=== PATIENT | male | born 1965 | race Caucasian/White ===

== ENCOUNTER 2021-08-05 00:41 | Day surgery (SDC) | payer BC, SELFPAY ==
[2021-07-31 14:50] VITALS: BMI 35.2
--- NOTE | 2021-07-31 15:00 | PC.NURSE ---
Report to the Outpatient Waiting Room, entrance under the green pavilion located off [facility], at time 0600 on date 08/05/21. OR Time: 0730. - You and your visitor will be asked a series of questions to screen for COVID 19 for your protection. - A mask is required within the hospital. - Only one visitor is allowed at this time. Patient visitors will be guided where to wait when not with patient. Preoperative COVID Testing Requirements: No COVID Test needed if: (proof is required; if not received patient will have Rapid Test prior to entry) - Patient has received COVID Vaccine at least 14 days prior to procedure date or - Patient has positive COVID test result within last 90 days of surgery date. COVID Test needed if above criteria is not met If not COVID vaccinated a COVID test must be conducted within 72 hours of surgery and patient is asked to isolate self from time of testing until procedure. You will go to the [facility] for your COVID testing. The [facility] is located at the corner of [address] [facility]. You will only be called if COVID results are positive and your surgeon may reschedule your elective surgery date. Patients may have clear liquids (water, carbonated beverages, clear teas, apple juice) until 3 hours prior to surgery with a maximum of 20 ounces. - No food from midnight until time of surgery - Infants may have breast milk until 4 hours before surgery, formula 6 hours prior to surgery. - Children will be allowed to drink immediately following surgery. If applicable, please bring a bottle or sippy cup to assist with drinking. Juice, water, soda, and popsicles are readily available. For infants on formula, please bring formula the day of surgery. Pacifiers are allowed. Take the following medications with a SIP of water the morning of surgery: AMLODIPINE Medications to discontinue per physician: VITAMINS/SUPPLEMENTS Date to take last dose: 08/01/[address] CARPENTER Please no make-up, nail uzbek, hairspray, perfume, deodorant, or body powder the day of surgery. No jewelry (including any body piercings) or valuables the day of surgery, leave them at home. Please take a shower or bath the night before, or the morning of, surgery with an antibacterial soap. Wear comfortable, loose fitting clothing. Children are encouraged to wear pajamas. - Jewelry must be removed prior to entering the operating room. Rings and piercings that are not removed may be cut off. - The hospital will not accept responsibility for valuables. - Please leave all valuables, including medications, at home the day of surgery. If you are going home after surgery, a licensed utility driver must drive you home. - NO public transportation without another adult. - We recommend that an adult stay with you for 24 hours following discharge. - We also recommend that you do not drive, make important decision, drink alcoholic beverages, or take any drugs that were not prescribed by your health care provider for at least 24 hours after your discharge time. For Pediatric surgeries, we recommend two adults accompany the child home (only one inside the building at this time). Follow any additional instructions given to you from your surgeon. Telephone instructions given to - FRANKY ROBERTO and asked if any additional questions and then verbalized understanding. Patient advised to call surgeon office or pre surgery nurse liaison [phone] if any additional questions.
[2021-08-05 06:09] VITALS: BP 154/72; PULSE 34; RESP 18; TEMP 36.6; O2SAT 98
[2021-08-05] MEDS: LACTATED RINGERS 1,000 ML 30 ML IV CONT ×2 (06:28→09:06)
[2021-08-05 06:43] VITALS: PULSE 52
[2021-08-05 06:46] LABS: Anion Gap 7 mmol/L (8-16); Blood Urea Nitrogen 20 mg/dL (9-20); Carbon Dioxide 26 mmol/L (22-30); Chloride 107 mmol/L (98-107); Estimated CRCL calculation 113 ml/min; Estimated Glomerular Filt Rate > 60; Glucose 100 mg/dL (65-110); Potassium 3.9 mmol/L (3.4-5.0); Sodium 140 mmol/L (137-145)
--- NOTE | 2021-08-05 07:14 | WPDHPUPDATE1 ---
History and Physical Update Update Date/Time: 08/05/21 07:14 History and Physical has been reviewed, including an updated exam of the patient. There are NO changes in the patient's condition. Risks, benefits, and alternatives have been discussed and questions answered. Patient agrees to proceed with procedure.
--- NOTE | 2021-08-05 07:14 | WPDHPUPDATE1 ---
History and Physical Update Update Date/Time: 08/05/21 07:14 The procedure is to excise the tumor and close the wound either with direct suture closure or FTSG or LTT. History and Physical has been reviewed, including an updated exam of the patient. There are NO changes in the patient's condition. Risks, benefits, and alternatives have been discussed and questions answered. Patient agrees to proceed with procedure.
--- NOTE | 2021-08-05 07:16 | WPDANESEPPF ---
Anes - Initial Pre Proc Eval Procedure: Operation Date: 08/05/21 07:30 Proposed Procedures p Excision Nodular Neoplasm of the Right Nasal Lobule with Frozen Section and Full Thickness Skin Graft Or Local Tissue Transfer - Hugo Frazier MD Date/Time: 08/05/21 07:16 Surgeon: Hugo Frazier MD Pre Op Diagnosis: Nodule Neoplasm of Rt Nasal Lobule Patient Data Age: 56 Gender: M Height: 1.7 m Weight: 102.9 kg Last Vital Signs Temp 97.8 F 08/05/21 06:09 Pulse 52 L 08/05/21 06:43 Resp 18 08/05/21 06:09 BP 154/72 H 08/05/21 06:09 Pulse Ox 98 08/05/21 06:09 Allergies Allergy/AdvReac Type Severity Reaction Status Date / Time Penicillins Allergy Unknown Verified 08/05/21 06:41 Home Medications Medication Instructions Recorded Confirmed Type amlodipine 5 mg PO DAILY 07/31/21 08/05/21 History aspirin [Baby Aspirin] 81 mg PO DAILY 07/31/21 08/05/21 History atorvastatin 10 mg PO DAILY 07/31/21 08/05/21 History elderberry fruit [Elderberry] 200 mg PO DAILY 07/31/21 08/05/21 History furosemide 20 mg PO DAILY 07/31/21 08/05/21 History naproxen sodium [Aleve] 220 mg PO BID PRN 07/31/21 08/05/21 History Laboratory Tests 08/05/21 06:19 Sodium 140 mmol/L mmol/L (137-145) Potassium 3.9 mmol/L mmol/L (3.4-5.0) Chloride 107 mmol/L mmol/L (98-107) Carbon Dioxide 26 mmol/L mmol/L (22-30) Anion Gap 7 mmol/L L mmol/L (8-16) BUN 20 mg/dL mg/dL (9-20) Creatinine 0.70 mg/dL mg/dL (0.7-1.3) Estim Creat Clear Calc 113 ml/min ml/min Estimated GFR > 60 (59 - ) Glucose 100 mg/dL mg/dL (65-110) Calcium 9.0 mg/dL mg/dL (8.4-10.2) Patient hx anesthesia problems: none Family hx anesthesia problems: none Results Review: All pre-operative results and documents have been reviewed as part of the pre-operative evaluation. [facility] Social History Social History Smoking packs per day: 1 Smoking cigarettes per day: 20.0 Years smoked: 30 Smoking pack-years: 30.00 Smoking status: Current every day smoker Tobacco type: cigarettes Alcohol intake: current Drinks per week: 4 Substance use: never Substance use type: does not use Living arrangements: with family Spiritual care concerns: No Anes - Eval Final PreProcedure Day of Procedure 08/05/21 07:16 Patient weight: obese Heart: regular rate and rhythm Lungs: clear to auscultation Airway: Mallampati scale class II Neurological: alert and oriented Last oral intake: >/= 8 hours ASA classification: III Emergent: no Anesthetic plan: proceed Anesthesia type and monitoring: general GIVS (usse LMA) and standard monitoring Results Review: All pre-operative results and documents have been reviewed as part of the pre-operative evaluation. Informed Consent: The patient's anesthetic plan and its attendant risks and benefits were discussed with the patient/family/POA. Questions were solicited and answers provided to the satisfaction of the patient/family/POA.
[2021-08-05] MEDS: LIDO 1%/EPINEPHRINE 1:100,000 50 ML VIAL INFILTRATE (08:51)
[2021-08-05] MEDS: ceFAZolin SODIUM 1 GM VIAL IV PUSH (08:52)
[2021-08-05 09:05] VITALS: BP 139/78; PULSE 71; RESP 19; O2SAT 94
--- NOTE | 2021-08-05 09:17 | P.OP_ITS ---
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 Surgeon Hugo Frazier MD Description of Procedure The site was marked with the patient's awareness on his nose in the holding area. He was taken to the operating room placed supine on the operating table. A time-out was held and confirmed. He was given sedation anesthesia with an LMA. The tire face and right neck were prepped and draped in usual fashion. The site was carefully marked for an excision with a roughly 2-1/2 mm margin. The area was widely infiltrated with 1% lidocaine with epinephrine. The incision was made around the mass the dissection was carried through the thick skin into subcutaneous tissue. It was marked at the most superior aspect with a suture for 12 o'clock. It was taken off in the subcutaneous tissue with scissors and sent to pathology. The pathologist reported that it was a basal cell carcinoma. The peripheral margins were free but the very central deep margin was focally positive. We undertook a 2nd excision from the base. This was a circular disc of tissue approximately 1 1-2 mm in thickness. The old deep margin was marked with a suture and the specimen sent for permanent section. It was determined that we would be able to close this wound side to side with extensive undermining at the level of the periosteum negating the need for skin graft or local tissue transfer. This was carried out by extending the incision cephalad and caudad and undermining a cm and a half in the cephalad and lateral aspect. The medial and caudal margins were undermined between 5 and 10 mm. Some additional soft tissue was excised off the nasal bones to lower the contour above the piriform aperture. We were able to advance the 2 sides of the wound together using 4- 0 Vicryl sutures placed in the deep aspect of the thick skin flaps skin. Appropriate contour of the nose was then achieved by removing standing cones at the nasal tip and over the dorsum. The final skin closure was done with a running 5 0 nylon. No bandage was applied. The patient was given IV Ancef during the case. This is for prophylaxis because of the very thick skin showing signs of rhinophyma and the undermining of tissue and placement the deep stitches. A prescription for tramadol 100 mg Q 6 hours number 8 and cephalexin 500 mg t.i.d. 15. was sent to his pharmacy Estimated Blood Loss -5.0 Drains No Packing No Pathology yes Complications No immediate complications Condition stable Disposition same day
[2021-08-05 09:20] VITALS: BP 146/62; PULSE 67; RESP 18; O2SAT 93
[2021-08-05 09:35] VITALS: BP 165/79; PULSE 63; RESP 18; O2SAT 94
--- NOTE | 2021-08-05 09:59 | SUR.PHASEII ---
md villa said he wanted pt to take an oral abx at home. This nurse called pt who was with pt and let her know that the abx was sent to his pharmacy and to take as directed on the bottle. pt also was sent with gauze incase some bleeding occurs.
--- NOTE | 2021-08-05 10:07 | SUR.PHASEII ---
at 0950 pt pt meets discharge criteria
== END 2021-08-05 09:58 | disposition home or self-care (01) ==
PROVIDERS: Anesthesiology; PCP Family Medicine; Visit Provider Plastic Surgery
PROC: (CPT 11642; principal; 2021-08-05 07:30)
DX: C44.311 Basal cell carcinoma of skin of nose (principal); F17.210 Nicotine dependence, cigarettes, uncomplicated; Z79.82 Long term (current) use of aspirin; E66.9 Obesity, unspecified; Z68.35 Body mass index [BMI] 35.0-35.9, adult
CPT/HCPCS: 11642; 13152; 36415; 80048; 88305; 88331; 88332; A9270; J0690; J1100; J2250; J2405; J2704; J3010; J7120